=== PATIENT | female | born 1940 | race Caucasian/White ===

== ENCOUNTER 2020-02-14 14:01 | Outpatient (CLI) | payer MEDICARE, SELFPAY ==
--- NOTE | ~2020-02-14 | US_ITS ---
EXAMINATION: US art doppler w press LE BI DATE: 02/14/2020 15:20 INDICATION: Claudication. TECHNIQUE: Segmental pressures and plethysmographic and Doppler waveforms of the brachial and lower e xtremity arteries were obtained. COMPARISON: None. FINDINGS: Right and left brachial artery pressures of 175 mm Hg and 155 mm Hg, respectively, are concordant (no rmal difference <= 30 mmHg). The right thigh, below-knee, and dorsalis pedis pressures could not be obtained due to inability to c uff-occlude the arteries. The right ankle-brachial index (LULU) is nondiagnostic (normal >= 0.9-1.0). The right great toe-brachial index (TBI) is 0.77 (normal >= 0.65). Arterial Doppler waveforms are at least biphasic in common femoral artery and are biphasic from superficial femoral artery to the ankle . The left thigh, below-knee, and ankle pressures could not be measured due to inability to cuff-occlud e the arteries. The left LULU is nondiagnostic. The left TBI is 0.52. Arterial Doppler waveforms are a t least biphasic from common femoral artery to the ankle. IMPRESSION: 1. Normal right TBI and mildly decreased left TBI, consistent with left-sided arterial occlusive dise ase. Nondiagnostic ABIs. Reviewed, dictated and finalized at location A. IMPRESSION: 1. Normal right TBI and mildly decreased left TBI, consistent with left-sided a rterial occlusive disease. Nondiagnostic ABIs.
== END 2020-02-14 14:02 | disposition home or self-care (01) ==
PROVIDERS: PCP Family Medicine; Visit Provider Nurse Practitioner Family
DX: I70.213 Atherosclerosis of native arteries of extremities with intermittent claudication, bilateral legs (principal)
CPT/HCPCS: 93923

== ENCOUNTER 2020-12-10 05:16 | Emergency (ER) | payer MEDICARE, SELFPAY ==
--- NOTE | ~2020-12-10 | CT_ITS ---
EXAMINATION: CT lumbar spine wo con DATE: 12/10/2020 05:55 INDICATION: Low back pain post fall TECHNIQUE: Computed tomography (CT) of the lumbar spine was performed without intravenous contrast. A utomated exposure control and iterative reconstruction technique were employed. The dose-length produ ct was 319.61 mGy-cm. COMPARISON: None FINDINGS: Alignment is normal. Acute appearing L1 burst fracture with 1/4 vertebral body height loss and 3 mm r etropulsion. Remaining vertebral body heights are normal. No other fractures identified. Mild disc he ight loss with vacuum phenomena at L3-L4 and L4-L5. Moderate sigmoid diverticulosis. There is calcifi ed atherosclerosis of the aorta and many of the other arteries. The following disc levels are specif ically discussed: T12-L1: Disc is mildly bulging. There is mild bilateral facet joint osteoarthritis. There is no neura l foraminal stenosis. There is minimal central canal stenosis. L1-L2: The disc does not extend beyond the endplate margin. There is mild bilateral facet joint osteo arthritis. There is no neural foraminal stenosis. There is no central canal stenosis. L2-L3: Disc is mildly bulging. There is mild bilateral facet joint osteoarthritis. There is minimal b ilateral neural foraminal stenosis. There is mild central canal stenosis. L3-L4: Disc is bulging. There is mild bilateral facet joint osteoarthritis. There is mild bilateral, right greater than left neural foraminal stenosis. There is mild central canal stenosis. L4-L5: Disc is bulging. There is mild bilateral facet joint osteoarthritis. There is mild bilateral, right greater than left neural foraminal stenosis. There is mild central canal stenosis. L5-S1: Disc is bulging. There is mild left and severe right facet joint osteoarthritis. There is mini mal bilateral neural foraminal stenosis. There is minimal central canal stenosis. IMPRESSION: 1. Acute L1 burst fracture with 1/4 vertebral body height loss and 3 mm retropulsion. 2. Mild lumbar spondylosis. 3. Sigmoid diverticulosis. Reviewed, dictated and finalized at location A. IMPRESSION: 1. Acute L1 burst fracture with 1/4 vertebral body height loss and 3 mm retropu lsion. 2. Mild lumbar spondylosis. 3. Sigmoid diverticulosis.
--- NOTE | ~2020-12-10 | CT_ITS ---
EXAMINATION: CT brain wo con DATE: 12/10/2020 05:55 INDICATION: Head injury. TECHNIQUE: Computed tomography (CT) of the head was performed without intravenous contrast. The mA wa s adjusted according to patient size. Iterative reconstruction technique was employed. The dose-lengt h product was 605.33 mGy-cm. COMPARISON: Head CT 10/17/2013 FINDINGS: There are old lacunar infarcts in the bilateral basal ganglia and left thalamus. There are scattered areas of low attenuation in the cerebral white matter. There is no intracranial hemorrhage, acute infarction, or abnormal intracranial mass lesion. The ventricles are normal in size. There is mild mucosal thickening in the ethmoid sinuses. There are likely changes of ocular lens replacement s urgeries. There are changes of left mastoidectomy. IMPRESSION: 1. 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 2. Worsened moderate nonspecific cerebral white matter disease, which likely represents chronic small vessel ischemic disease. Reviewed, dictated and finalized at location A. IMPRESSION: 1. 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 2. Worsened moderate nonspecific cerebral white matter disease, which likely re presents chronic small vessel ischemic disease.
[2020-12-10 05:17] VITALS: BP 171/97; PULSE 94; RESP 18; TEMP 36.6; O2SAT 98
[2020-12-10 05:21] VITALS: BP 171/97; O2SAT 97
[2020-12-10 05:22] VITALS: O2SAT 98
--- NOTE | 2020-12-10 05:29 | ED.FALL ---
HPI - Fall General Chief Complaint: Fall Stated Complaint: low back pain Time Seen by Provider: 12/10/20 05:24 Source: RN notes reviewed History of Present Illness HPI Narrative: Patient presents to emergency department from home for a fall. Patient states approximately 1030 last night she is walked through a doorway when a spiderweb got caught up in her hair try to get out she fell landing on her back she states she did strike her head but is not Danya any loss of consciousness she states that she had pain at that time that is progressively worsened in the lower back bilaterally states she tried taking aspirin at home for the pain with minimal relief states she is able get up and walk. She denies any vision changes, chest pain, shortness of breath, abdominal pain nausea vomiting diarrhea numbness or tingling in extremities or any other symptoms Related Data Home Medications Medication Instructions Recorded Confirmed aspirin 325 mg tablet 325 mg PO DAILY 12/08/19 12/08/19 Allergies Allergy/AdvReac Type Severity Reaction Status Date / Time No Known Allergies Allergy Verified 01/31/20 14:25 Review of Systems Review of Systems: Narrative: Gen.: Denies fevers or chills Eyes: Denies eye pain or visual change ENT: Denies congestion Respiratory: Denies shortness of breath CV: Denies chest pain GI: Denies abdominal pain nausea, emesis denies any incontinence Musculoskeletal: See HPI Neuro: Denies numbness, tingling, weakness or focal weakness Skin: Denies rash Except as documented, all other systems reviewed and negative PMFSH Past Medical History Medical History (Updated 12/10/20 @ 06:44 by Gerhard Osman DO) Hypercholesterolemia Family History Family History Sibling Family history of diabetes mellitus in first degree relative Father Family history of coronary artery disease Mother Family history of coronary artery disease Social History Social History Smoking status: Former smoker Alcohol intake: current Exam Narrative: Exam Narrative: APPEARANCE: No acute distress, nontoxic, resting in bed EYES: EOMI HEENT: Normocephalic, atraumatic, OMM RESPIRATORY: No respiratory distress Clear to auscultation bilaterally with no rhonchi wheezing or rales. CARDIOVASCULAR: Regular rate and rhythm without murmurs rubs or gallops. ABDOMINAL: Soft, nontender, nondistended, no rebound or guarding MUSCULOSKELETAl: Moves all extremities. No clubbing, cyanosis or edema. Back: No midline thoracic lumbar tenderness palpation tender palpation of bilateral para 2 muscles L2-4 pain increased with forward flexion NEURO: Awake and alert. Following commands, speech normal, no focal deficits muscle strength 5 out of 5 bilateral upper and lower extremities SKIN:: Warm, dry. No rashes lesions or abrasions PSYCHIATRIC: Normal affect/mood, Course Course Emergency Course: Discussed with Dr. Eddy presentation work-up agrees with plan for discharge to follow-up as an outpatient Patient states he is feeling better following medication will get up and ambulate with no difficulty Discussed with patient results of workup and diagnosis. Discussed need for follow-up with primary care, proper use of medication, and reasons to return to the emergency department. Patient understands and agrees to current treatment plan Vital Signs Vital signs: Vital Signs Temperature 97.9 F 12/10/20 05:17 Pulse Rate 94 12/10/20 05:17 Respiratory Rate 18 12/10/20 05:17 Blood Pressure 171/97 H 12/10/20 05:17 Pulse Oximetry 98 12/10/20 05:17 Temperature 97.9 F 12/10/20 05:17 Pulse Rate 65 12/10/20 06:01 Respiratory Rate 16 12/10/20 06:01 Blood Pressure 171/97 H 12/10/20 05:21 Pulse Oximetry 97 12/10/20 06:01 MDM - Fall Imaging Data Radiologist's impression: CT head shows no acute intracranial hemorrhage.
[2020-12-10 06:01] VITALS: PULSE 65; RESP 16; O2SAT 97
[2020-12-10] MEDS: HYDROcodone/acetaminophen (*CRX) 5-325 MG TABLET 1 TAB PO (06:09)
== END 2020-12-10 07:07 | disposition home or self-care (01) ==
PROVIDERS: Emergency Provider Emergency Medicine; PCP Family Medicine
DX: S32.010A Wedge compression fracture of first lumbar vertebra, initial encounter for closed fracture (principal); Z79.82 Long term (current) use of aspirin; Z87.891 Personal history of nicotine dependence; W18.30XA Fall on same level, unspecified, initial encounter
CPT/HCPCS: 70450; 72131; 99284; A9270

== ENCOUNTER 2021-01-29 11:00 | Outpatient (RCR) | payer MEDICARE, SELFPAY ==
--- NOTE | 2020-12-26 14:20 | PTOPEVAL ---
Thank you for referring Inna Jean to [facility].? The patient is scheduled to be seen for therapy? 1 x/week for 5 weeks. Please review, sign, date and return this plan of care SHANE. I agree with and certify that the following plan of care is medically necessary. Referring Physician Date Attending Provider: Maryuri Oliva, BRANCH ASSISTANT Diagnosis L1 fracture Onset 12/09/20 Cause fall Subjective Information She sustained a fall on Text:As Reported By Patient when she lost her balance Family backwards trying to brush something off her head. She reports increased pain with lifting and walking. She has increased pain with bending forward. She has increased pain with insurance claims representative. Denies any problems with driving. Denies a regular fitness or walking program. Prior to COV she was busy visiting people. Pain Assessment Lower Back Reported Pain Level 4 Pain Description Sharp Pain Frequency Acute Lowest Pain Intensity 3 Greatest Pain Intensity 9 Pain Aggravating Factors Bending,Lifting,Walking Pain Behaviors None Cervical and Lumbar ROM Lumbar ROM Lumbar Flexion Active Mid Ellis:Hands to: Lateral Flexion lateral knee jointActive Hands to: Lumbar Comments mild pain with all trunk motions, 75% of trunk motions Cervical and Lumbar Muscle Testing Lumbar Strength Upper Abdominal Strength 3+Fair+ Upper Back Extension 3 Fair Lower Back Extension 3 Fair Lumbar Functional Strength Comments able to maintain trunk in midline in seated position mild trunk shift with standing marching Lower Extremity Muscle Strength Testing Hip Strength Bilateral Hip Flexion Strength 3+ Fair + Hip Extension Strength 3- Fair - Hip Abduction Strength 3- Fair - Knee Strength Bilateral Knee Flexion Strength 4- Good - Knee Extension Strength 4- Good - Muscle Length Testing Muscle Length Testing Piriformis w/Hip Flexion >90 Degrees (R) Mild Tightness,(L) Moderate Tightness Right Straight Leg Raise Muscle Length ( 80 degrees) Left Straight Leg Raise Muscle Length ( 70 degrees) Left Hamstring Length
--- NOTE | 2021-01-03 15:47 | PCPTNOTE ---
Patient did not show up for scheduled appointment this date. Called and spoke with Pt, She stated to have changed her appointment to 12/31/20 due to a scheduling conflict and attended that session. Pt is once a week Per POC. This was a scheduling error.
--- NOTE | 2021-01-29 11:49 | PTOPEVAL ---
Physical Therapy Discharge Note Thank you for referring Inna Jean to [facility].? She has attended 6 therapy visits to address her back pain due to a fracture. She has achieved her therapy goals at this time and demonstrates indep with her HEP. Will DC skilled therapy services. Please review, sign, date and return this discharge summary SHANE. I agree with and certify that the following plan of care is medically necessary. Referring Physician Date Attending Provider: LETTY Rubin Diagnosis L1 fracture Onset 12/09/20 Cause fall Additional Evaluation Detail She sustained a fall on when she lost her balance backwards trying to brush something off her head. Subjective Information She denies any increased back Query Text:As Reported By Patient/ pain with daily task. She is Family performing HEP 4x/wk. She denies increased pain with bending forward. Pain Assessment Self Report Pain Assessment Lower Back Reported Pain Level 0 Lowest Pain Intensity 0 Greatest Pain Intensity 0 Cervical and Lumbar ROM Lumbar ROM Lumbar Flexion Active Floor:-Hands to Lateral Flexion lateral knee joint-Active Hands to Lumbar Comments no pain with motions, 75% to 100% of trunk motion Cervical and Lumbar Muscle Testing Lumbar Strength Upper Abdominal Strength 4-Good- Upper Back Extension 4-Good- Lower Back Extension 4-Good- Lumbar Functional Strength Comments able to tex moderate resistance to trunk in all directions Lower Extremity Muscle Strength Testing Hip Strength Bilateral Hip Flexion Strength 4+ Good + Hip Extension Strength 4 Good Hip Abduction Strength 3+ Fair + Knee Strength Bilateral Knee Flexion Strength 4+ Good + Knee Extension Strength 4+ Good + Palpation Assessment Palpation no tenderness of amando QL region , paraspinals or spinous process of thoracic and lumbar region and PSIS region Special Tests-Lower Extremity Hip Special Tests Trendelenburg Sign Positive Left,Positive Right Hip Special Test Comments demo proper LE control and position with sit<>Stand from low mat- no pain in back with movement Stair Climbing Assessment Stair Climbing Assessment Stair Climbing Assistive Devices None Number of Steps Climbed (Steps) 8 Technique Alternating S
== END 2021-01-29 15:52 | disposition home or self-care (01) ==
LOC: ANHPT 11:00
PROVIDERS: PCP Family Medicine; Visit Provider Nurse Practitioner Family
DX: S32.019D Unspecified fracture of first lumbar vertebra, subsequent encounter for fracture with routine healing (principal); W19.XXXD Unspecified fall, subsequent encounter
CPT/HCPCS: 97110; 97140; 97162

== ENCOUNTER 2021-05-10 12:54 | Outpatient (CLI) | payer MEDICARE, SELFPAY ==
--- NOTE | ~2021-05-10 | DEXA_ITS ---
Bone Density Report Name: GLADIS YANG Age: 80 Sex: Female Ethnicity: White Date of : 1940 Indication: postmenopausal; height loss; prior fracture; cancer; Referring Provider: Maryuri Oliva Study: Bone densitometry was performed. Exam Date: May 10, 2021 Accession number: [id number] Bone Density: Region BMD T-score Z-score Classification AP Spine (L2, L3, L4) 0.821 -2.3 0.4 Osteopenia Femoral Neck (Left) 0.628 -2.0 0.3 Osteopenia Total Hip (Left) 0.758 -1.5 0.5 Osteopenia Total Hip Bilateral Avg 0.717 -1.9 0.2 Osteopenia Femoral Neck (Right) 0.629 -2.0 0.3 Osteopenia Total Hip (Right) 0.675 -2.2 -0.2 Osteopenia World Health Organization criteria for BMD impression classify patients as: Normal (T-score at or above -1.0), Osteopenia (T-score between -1.0 and -2.5), or Osteoporosis (T-score at or below -2.5). 10-year Fracture Risk: FRAX not reported because: Prior hip or vertebral fracture Clinical Information Provided by Patient: Have had a previous hip or vertebral fracture Has had a low trauma fracture Has used the following medications: Calcium Has the following medical conditions: Cancer Patient maximum height was 67 Menopause Age: 51 No regular weight bearing exercise Does not regularly consume dairy products Drinks caffeinated beverages Onset of menses at age 17 Number of children 0 Impression: The patient has low bone mass, based on the Total Spine T-score. The patient has risk factors, including: previous fracture. Discussion: INCREASED RISK OF FRACTURE DUE TO HISTORY OF FRACTURE. The patient's previous fracture puts the patient at high risk of a future fracture. In untreated patients, the risk of osteoporotic fracture increases approximately two-fold for each 1.0 SD decrease in T-score. Low bone density is not the only risk factor for fracture; also consider factors such as patient's age, frailty or poor health, risk of falling, risk of injury, previous osteoporotic fracture, family history of osteoporosis, cigarette smoking, low body weight, etc. Not everyone with a low trauma fracture has osteoporosis; osteomalacia and other metabolic bone disorders should also be considered. Patients who have osteoporosis should be evaluated for specific diseases and conditions (secondary causes) that may cause or contribute to bone loss and fracture risk. National Osteoporosis Foundation (NOF) recommends pharmacologic intervention for patients with a prior hip or vertebral fracture regardless of BMD T-score. The patient should follow a healthful lifestyle (good nutrition with adequate calcium and vitamin D, and appropriate weight-bearing exercise). Follow-Up: Consider a repeat BMD and Vertebral Fracture Assessment (VFA) exam in 2 years or sooner if medically necessary, to reassess this patient's statu
== END 2021-05-10 12:55 | disposition home or self-care (01) ==
PROVIDERS: PCP Family Medicine; Visit Provider Nurse Practitioner Family
DX: S32.019A Unspecified fracture of first lumbar vertebra, initial encounter for closed fracture (principal); M85.851 Other specified disorders of bone density and structure, right thigh; M85.852 Other specified disorders of bone density and structure, left thigh
CPT/HCPCS: 77080

== ENCOUNTER 2023-04-20 10:51 | Outpatient (CLI) | payer MEDICARE, SELFPAY ==
--- NOTE | 2023-04-21 14:43 | WPDHOLTEREM ---
Holter/Event Monitor Holter/Event Monitor Date of procedure: 04/20/23 Holter/Event Procedure: 24 Hr Holter Monitor Indications: Cardiac arrhythmia Conclusion: 1. 24 hour holter monitor on 04/20/23. 2. Underlying rhythm is sinus rhythm. HR range 53-140 bpm; average HR 93 bpm. HR at 140 bpm was at 13:57. 3. There are 1,041 premature supraventricular complexes, 26 supraventricular couplets, 1 supraventricular triplet, 10 supraventricular bigeminy. No supraventricular tachycardia. 4. There are 3,462 premature ventricular complexes, 16 ventricular couplets, and 3 ventricular trigeminy. No ventricular tachycardia. 5. No sinoatrial or atrioventricular blocks. No significant pauses greater than 2 seconds. 6. No symptoms available for correlation.
== END 2023-04-20 10:52 | disposition home or self-care (01) ==
LOC: ANHCARD 10:52
PROVIDERS: PCP Family Medicine; Visit Provider Physician Assistant Medical
DX: I49.9 Cardiac arrhythmia, unspecified (principal)
CPT/HCPCS: 93225; 93226

== ENCOUNTER 2023-08-04 00:23 | Emergency (ER) | payer MEDICARE, SELFPAY ==
--- NOTE | ~2023-08-04 | XR_ITS ---
EXAMINATION: XR wrist RT min 3V DATE: 08/04/2023 01:57 INDICATION: Right wrist pain. Deformity. TECHNIQUE: 2 views of right wrist were obtained. COMPARISON: None. FINDINGS: There is a transverse fracture of distal radial metaphysis with involvement of the distal r adioulnar joint. The distal fracture fragment demonstrates impaction and dorsal angulation. There is 28 degrees dorsal tilt of the distal articular surface. There is mild osteoarthritis of first carpome tacarpal joint. IMPRESSION: 1. Transverse fracture of distal radial metaphysis. Reviewed, dictated and finalized at location E. SMAN
--- NOTE | ~2023-08-04 | XR_ITS ---
EXAMINATION: XR wrist RT 2V DATE: 08/04/2023 04:37 INDICATION: Distal right radius fracture status post reduction. TECHNIQUE: 2 views of right wrist were obtained. COMPARISON: Right wrist radiographs at 1:41 AM FINDINGS: There is a transverse fracture of distal radial metaphysis. The distal fracture fragment de monstrates impaction and dorsal angulation. There is 11 degrees dorsal tilt of the distal articular s urface. There is mild osteoarthritis of first carpometacarpal joint. IMPRESSION: 1. Transverse fracture of distal radial metaphysis. Reviewed, dictated and finalized at location E. LASTER
[2023-08-04 00:25] VITALS: BP 185/79; PULSE 86; RESP 16; TEMP 36.4; O2SAT 98
[2023-08-04 00:35] VITALS: BP 185/79; PULSE 89; RESP 16; TEMP 36.5; O2SAT 96
[2023-08-04 02:13] VITALS: BP 168/87; PULSE 96; RESP 17; O2SAT 98
[2023-08-04 04:59] VITALS: BP 170/92; PULSE 82; RESP 17; O2SAT 97
--- NOTE | 2023-08-04 04:59 | ED.UPPEXIN ---
HPI - Extremity Injury (Upper) General Chief Complaint: Extremity Injury, Upper Stated Complaint: fall, wrist deformity Time Seen by Provider: 08/04/23 02:31 History of Present Illness HPI narrative: Patient is an 82-year-old female who presents to the emergency department this evening after a slip and fall. Patient did sustain a ground level fall and landed on her right hand as she tried to catch herself. Patient admits that she is right-hand dominant. Patient is neurovascularly intact. Denies any numbness or tingling of her right hand. Patient has good range of motion at the right elbow and right shoulder joint. Patient denies hitting her head, denies any loss of consciousness and denies any additional injuries at this time. There are no other modifying, alleviating, or precipitating factors at this time. Related Data Home Medications Medication Instructions Recorded Confirmed aspirin 325 mg tablet 325 mg PO DAILY 12/08/19 08/06/23 Allergies Allergy/AdvReac Type Severity Reaction Status Date / Time No Known Allergies Allergy Verified 08/06/23 15:07 Review of Systems Review of Systems: All systems are reviewed and are negative unless stated otherwise in the HPI. [facility] Past Medical History Medical History At moderate risk for fall BMI 20.0-20.9, adult BMI 22.0-22.9, adult Dietary counseling and surveillance (07/27/17) Hypercholesterolemia Left anterior shoulder pain Mass of lung Memory loss, short term Mixed hyperlipidemia Numbness of right hand Serum sodium elevated Small cell lung cancer, left lower lobe Thickened nails Vertigo Family History Family History Sibling Family history of diabetes mellitus in first degree relative Father Family history of coronary artery disease Heart disease Mother Family history of coronary artery disease Dementia Sibling No problems noted. Sibling Dementia Social History Social History Smoking status: Former smoker Tobacco type: cigarettes Second hand tobacco smoke exposure: No Smoking end date: 06/01/17 Alcohol intake: current Substance use: never Substance use type: does not use Do You Feel Safe in your Home?: Yes Lack of Transportation: No Lack of Food: Never True Current Housing: I Have Housing Concerned About Future Housing: No Difficulty Paying Gas/Electric Bills: No Difficulty Paying for Meds: No Currently Unemployed: No Education: High School Diploma/GED Difficulty w/ Childcare or Family Care: No Living arrangements: alone Occupation/Education: retired Additional occupation/education comments: real estate Gender identity (if verbalized by the patient): Female Exam Narrative: General: Alert, awake, afebrile, in no acute distress. HEENT: PERRL, no rhinorrhea, no post nasal drip, oropharynx clear. Neck: Trachea midline, no JVD, no lymphadenopathy. Cardiovascular: Regular rate and rhythm, no murmurs, rubs or gallops, no peripheral edema. Respiratory: Clear to auscultation bilaterally, no tachypnea, no wheezing, no rhonchi, no rubs, no respiratory distress. Abdomen: Soft, nontender, nondistended, no rebound, no guarding, no peritoneal signs. Musculoskeletal: Mild deformity to the right wrist, intact radial and ulnar pulses, intact sensation over the median, ulnar and radial pulses, patient is neurovascularly intact. Intact range of motion at the right elbow and shoulder joints. Skin: No rashes or petechia, no signs of infection. Psychiatric: Alert and oriented, normal behavior and judgment for situation. Neurological: Alert and oriented to person, place, and time. Follows all commands. No focal deficits, speech is clear and fluent. Course Vital Signs Vital signs: Vital Signs Temperature 97.6
== END 2023-08-04 05:30 | disposition home or self-care (01) ==
PROVIDERS: Emergency Provider Emergency Medicine; PCP Family Medicine
DX: S59.291A Other physeal fracture of lower end of radius, right arm, initial encounter for closed fracture (principal); E78.2 Mixed hyperlipidemia; Z85.118 Personal history of other malignant neoplasm of bronchus and lung; Z87.891 Personal history of nicotine dependence; W01.0XXA Fall on same level from slipping, tripping and stumbling without subsequent striking against object, initial encounter
CPT/HCPCS: 25565; 25605; 73100; 73110; 99285

== ENCOUNTER 2023-08-11 01:08 | Day surgery (SDC) | payer MEDICARE, SELFPAY ==
[2023-08-10 09:32] VITALS: BMI 19.4
--- NOTE | 2023-08-10 09:54 | PC.NURSE ---
Report to the Outpatient Waiting Room, entrance under the green pavilion located off [facility], at time __1230 on date __08/11/23 . Planned Procedure Time: __2:30 PM . Time changes happen often and if your time is changed the preop area will call you the afternoon before. - You and your visitor will be asked to self-screen and do not enter if you have any COVID symptoms. - A mask is optional within the hospital at this time. Patients may have clear liquids (water, carbonated beverages, clear teas, apple juice) until 3 hours prior to surgery with a maximum of 20 ounces. - No food from midnight until time of surgery - Infants may have breast milk until 4 hours before surgery, infant formula 6 hours prior to surgery. - Children will be allowed to drink immediately following surgery. If applicable, please bring a bottle or sippy cup to assist with drinking. Juice, water, soda, and popsicles are readily available. For infants on formula, please bring formula the day of surgery. Pacifiers are allowed. Take the following medications with a SIP of water the morning of surgery: NONE DO NOT STOP ANY OF YOUR OTHER PRESCRIPTION MEDICATIONS PRIOR TO SURGERY ?EXCEPT THE FOLLOWING Medications to discontinue per physician __ASPIRIN OF TODAY Date to take last dose___04/10/24 Please no make-up, nail costa rican, hairspray, perfume, deodorant, or body powder the day of surgery. No jewelry (including any body piercings) or valuables the day of surgery, leave them at home. Please take a shower or bath the night before, or the morning of, surgery with an antibacterial soap. Wear comfortable, loose fitting clothing. Children are encouraged to wear pajamas. - Jewelry must be removed prior to entering the operating room. Rings and piercings that are not removed may be cut off. - The hospital will not accept responsibility for valuables. - Please leave all valuables, including medications, at home the day of surgery. If you are going home after surgery, a licensed local company intermodal truck driver must drive you home. - NO public transportation without another adult if you receive anesthesia. - We recommend that an adult stay with you for 24 hours following discharge. - We also recommend that you do not drive, make important decision, drink alcoholic beverages, or take any drugs that were not prescribed by your health care provider for at least 24 hours after your discharge time. For Pediatric surgeries, we recommend two adults accompany the child home. Follow any additional instructions given to you from your surgeon. If you or anyone in your household have experienced Covid symptoms in the past week, please notify your surgeon or the nurse liaison at the phone number below for possible testing. Telephone instructions given to ____PT and asked if any additional questions and then verbalized understanding. Patient advised to call surgeon office or pre surgery nurse liaison [phone] if any additional questions.
--- NOTE | 2023-08-10 12:00 | WPDANESEPPF ---
Anes - Initial Pre Proc Eval Procedure: Operation Date: 08/11/23 14:30 Proposed Procedures p Open Reduction Internal Fixation Right Distal Radius - Bayron Santoyo MD Date/Time: 08/10/23 12:00 Surgeon: Bayron Santoyo MD Pre Op Diagnosis: Rt Jomar Elizabeth Patient Data Age: 82 Gender: F Height: 1.68 m Weight: 54.54 kg Allergies Allergy/AdvReac Type Severity Reaction Status Date / Time No Known Allergies Allergy Verified 08/11/23 13:38 Home Medications Medication Instructions Recorded Confirmed Type aspirin 325 mg tablet 325 mg PO HS 12/08/19 08/10/23 History meclizine 25 mg tablet 25 mg PO TID PRN dizziness #30 tabs 01/29/23 08/10/23 Rx simvastatin 20 mg tablet See Rx Instructions .Route 07/02/23 08/10/23 Rx .COMPLEX #90 tabs donepezil 10 mg tablet (Aricept) 10 mg PO QHS #90 tabs 07/07/23 08/10/23 Rx donepezil 5 mg tablet 5 mg HS 08/10/23 08/10/23 History oxycodone-acetaminophen 5 mg-325 1 - 2 tablet PO Q4-6H PRN pain #30 08/11/23 Rx mg tablet tabs Patient hx anesthesia problems: none Family hx anesthesia problems: none Results Review: All pre-operative results and documents have been reviewed as part of the pre-operative evaluation. FORMERLY [facility], [facility]–1983 Past Medical History Medical History At moderate risk for fall BMI 20.0-20.9, adult BMI 22.0-22.9, adult Dietary counseling and surveillance (07/27/17) Hypercholesterolemia Left anterior shoulder pain Mass of lung Memory loss, short term Mixed hyperlipidemia Numbness of right hand Serum sodium elevated Small cell lung cancer, left lower lobe Thickened nails Vertigo Family History Family History Sibling Family history of diabetes mellitus in first degree relative Father Family history of coronary artery disease Heart disease Mother Family history of coronary artery disease Dementia Sibling No problems noted. Sibling Dementia Social History Social History Smoking packs per day: 1 Smoking cigarettes per day: 20.0 Years smoked: 58 Smoking pack-years: 58.00 Smoking status: Former smoker Tobacco type: cigarettes Second hand tobacco smoke exposure: No Smoking end date: 06/01/17 Alcohol intake: current Drinks per week: 7 Alcohol use details: 1 BEER/NIGHT Substance use: never Substance use type: does not use Do You Feel Safe in your Home?: Yes Lack of Transportation: No Lack of Food: Never True Current Housing: I Have Housing Concerned About Future Housing: No Difficulty Paying Gas/Electric Bills: No Difficulty Paying for Meds: No Currently Unemployed: No Education: High School Diploma/GED Difficulty w/ Childcare or Family Care: No Living arrangements: alone Occupation/Education: retired Additional occupation/education comments: real estate Gender identity (if verbalized by the patient): Female Spiritual care concerns: No Anes - Eval Final PreProcedure Day of Procedure 08/10/23 12:00 Patient weight: normal Heart: regular rate and rhythm Lungs: clear to auscultation Airway: Mallampati scale class II Neurological: alert and oriented Last oral intake: >/= 8 hours ASA classification: III Emergent: no Anesthetic plan: proceed Anesthesia type and monitoring: general LMA and standard monitoring Results Review: All pre-operative results and documents have been reviewed as part of the pre-operative evaluation. Informed Consent: The patient's anesthetic plan and its attendant risks and benefits were discussed with the patient/family/POA. Questions were solicited and answers provided to the satisfaction of the patient/family/POA.
--- NOTE | ~2023-08-11 | XR_ITS ---
EXAMINATION: XR surgery orthopedic DATE: 08/11/2023 14:20 CDT INDICATION: ORIF RIGHT WRIST . TECHNIQUE: 3 fluoroscopic images of the right wrist were obtained during ORIF right wrist, performed by Bayron Santoyo MD. I was not present during the procedure. Fluoroscopy exposure time was 1 mi nute and 0.9 seconds. Air Kerma 2.0503 mGy. DAP 0.0406 mGym2. COMPARISON: None FINDINGS/IMPRESSION: Fluoroscopic documentation of ORIF right wrist. Please refer to the operative note for complete proce dural details. Reviewed, dictated and finalized at location K.
[2023-08-11 13:00] VITALS: BP 127/84; PULSE 96; RESP 16; TEMP 36.4; O2SAT 99
[2023-08-11] MEDS: LACTATED RINGERS 1,000 ML 30 ML IV CONT ×2 (13:00→15:34)
[2023-08-11] MEDS: ACETAMINOPHEN 500 MG TABLET 1000 MG PO (13:00)
--- NOTE | 2023-08-11 13:09 | ECG_ITS ---
Measurements Intervals [place] Rate: 85 P: 35 MS: 182 QRS: -7 QRSD: 73 T: 20 QT: 380 QTc: 453 Interpretive Statements SINUS RHYTHM FREQUENT VENTRICULAR PREMATURE COMPLEXES INCOMPLETE RIGHT BUNDLE BRANCH BLOCK CONSIDER INFERIOR INFARCT, AGE INDETERMINATE ABNORMAL ECG NO PREVIOUS ECG AVAILABLE FOR COMPARISON Electronically Signed On 08-11-2023 13:43:33 CDT by Cristobal Murphy D.O.
--- NOTE | 2023-08-11 13:24 | WPDHPUPDATE1 ---
History and Physical Update Update Date/Time: 08/11/23 13:24 History and Physical has been reviewed, including an updated exam of the patient. There are NO changes in the patient's condition. Risks, benefits, and alternatives have been discussed and questions answered. Patient agrees to proceed with procedure.
[2023-08-11] MEDS: KETOROLAC 15 MG/ML VIAL (*BKC) IV PUSH (13:43)
[2023-08-11] MEDS: ceFAZolin 2 GM/D5W 50 ML 2 GM/50 ML BAG IVPB (14:03)
[2023-08-11] MEDS: BUPIVACAINE/EPINEPHRINE 0.5% 30 ML VIAL 9 ML INFILTRATE (15:11)
[2023-08-11 15:34] VITALS: BP 163/96; PULSE 74; RESP 15; TEMP 35.9; O2SAT 100
--- NOTE | 2023-08-11 15:46 | P.OP_ITS ---
Procedure Note - Detailed Date of Procedure 08/11/23 Pre-op Diagnosis Right wrist distal radius displaced extraarticular fracture. Post-op Diagnosis Same Procedure Performed ORIF right distal radius with volar plate. Surgeon Bayron Santoyo MD [employer] Education [employer] Clary Barnett PA-C Anesthesia General Description of Procedure Preoperative antibiotics were given. A general anesthetic was administered. The hand was prepped and draped in the usual sterile fashion with a well-padded tourniquet. The limb was exsanguinated and the tourniquet inflated to 250 millimeters of mercury. A longitudinal incision was created over the flexor carpi radialis tendon. Dissection was brought down through the sheath. The pronator quadratus was identified and released off of the radius. 7 pounds of finger trap traction applied. The fracture was carefully exposed and cleared of debris. Reduction was obtained with traction and manipulation. Fluoroscopy was used to confirm anatomic reduction. The volar plate was placed on the radius and the position was confirmed. Provisional pins were placed. The dynamic cortical screw was applied. The plate was fine tuned and fluoroscopy was use to confirm that the joint would not be violated. Subsequent distal pins and screws were placed, followed by the proximal row. The wound was irrigated and closed. 2-0 Vicryl suture was used to reapproximate the pronator quadratus. The tourniquet was released and meticulous hemostasis was confirmed. The skin was closed with 3-0 Monocryl suture and a running 4-0 Monocryl suture. Steri-Strips were applied on the skin. A sterile bulky dressing with a volar splint was applied. Implants Acumed narrow 3 hole distal radius plate and screws. Estimated Blood Loss 20 Drains No Packing No Pathology None sent Complications No immediate complications Condition Stable Disposition PACU [facility] Billing Surgery - Charge Forward: Surgery Billing
[2023-08-11 15:49] VITALS: BP 175/74; PULSE 69; RESP 10; TEMP 36; O2SAT 100
[2023-08-11 16:03] VITALS: BP 181/83; PULSE 73; RESP 16; O2SAT 96
[2023-08-11 16:08] VITALS: BP 154/80; PULSE 76; RESP 16
[2023-08-11 16:35] VITALS: BP 161/91; PULSE 77; RESP 14
== END 2023-08-11 16:57 | disposition home or self-care (01) ==
PROVIDERS: PCP Family Medicine; Visit Provider Orthopaedic Surgery
PROC: (CPT 25575; principal; 2023-08-11 14:30)
DX: S52.531A Colles' fracture of right radius, initial encounter for closed fracture (principal); W18.30XA Fall on same level, unspecified, initial encounter; R41.3 Other amnesia; E78.2 Mixed hyperlipidemia; Z79.82 Long term (current) use of aspirin; Z79.891 Long term (current) use of opiate analgesic; Z85.118 Personal history of other malignant neoplasm of bronchus and lung; Z87.891 Personal history of nicotine dependence; Z82.49 Family history of ischemic heart disease and other diseases of the circulatory system
CPT/HCPCS: 25607; 93005; 99199; A9270; C1713; J0690; J1100; J1885; J2405; J2704; J3010; J7120

== ENCOUNTER 2023-08-26 13:20 | Outpatient (CLI) | payer MEDICARE, SELFPAY ==
--- NOTE | ~2023-08-26 | XR_ITS ---
EXAMINATION: XR wrist RT w scaphoid INDICATION: Right radius fracture status post internal fixation TECHNIQUE: Four views of the right wrist are obtained on five radiographs. COMPARISON: 08/04/2023 FINDINGS: There has been interval open reduction and internal fixation of the previously described di stal radius fracture. Bone alignment is normal. No additional fracture is identified. No appreciable calcified callus has developed. A splint has been applied. IMPRESSION: 1. Interval open reduction and internal fixation of the previously described distal radius fracture. Reviewed, dictated and finalized at location F. IMPRESSION: 1. Interval open reduction and internal fixation of the previously described di stal radius fracture.
== END 2023-08-26 13:21 | disposition home or self-care (01) ==
LOC: ANHIMG 13:22
PROVIDERS: PCP Family Medicine; Visit Provider Orthopaedic Surgery
DX: S52.531A Colles' fracture of right radius, initial encounter for closed fracture (principal); X58.XXXA Exposure to other specified factors, initial encounter
CPT/HCPCS: 73110

== ENCOUNTER 2023-09-23 13:36 | Outpatient (CLI) | payer MEDICARE, SELFPAY ==
--- NOTE | ~2023-09-23 | XR_ITS ---
EXAMINATION: XR wrist RT min 3V DATE: 09/23/2023 13:54 INDICATION: Other specified postprocedural status. TECHNIQUE: 4 views of right wrist were obtained. COMPARISON: Right wrist radiographs 08/26/2023, 08/04/2023 FINDINGS: There is a transverse fracture of radial metaphysis in near anatomic alignment with interna l fixation with volar plate and screws. Callus formation is noted. 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 IMPRESSION: 1. Healing transverse fracture of distal radial metaphysis status post open reduction internal fixati on. Reviewed, dictated and finalized at location E. IMPRESSION: 1. Healing transverse fracture of distal radial metaphysis status post open red uction internal fixation.
== END 2023-09-23 13:37 | disposition home or self-care (01) ==
LOC: ANHIMG 13:38
PROVIDERS: PCP Family Medicine; Visit Provider Orthopaedic Surgery
DX: Z98.890 Other specified postprocedural states (principal); S59.201D Unspecified physeal fracture of lower end of radius, right arm, subsequent encounter for fracture with routine healing; X58.XXXD Exposure to other specified factors, subsequent encounter
CPT/HCPCS: 73110